=== PATIENT | male | born 1945 | race Caucasian/White ===

== ENCOUNTER 2020-01-05 07:27 | Outpatient (REF) | payer BC, SELFPAY ==
[2020-01-05 10:28] LABS: MANUAL DIFF FLAG NO
[2020-01-05 10:34] LABS: Basophils Absolute Auto 0.1 X10*3/uL (0.0-0.2); Basophils Percent Auto 0.6 % (0-2); Eosinophils Absolute Auto 0.1 X10*3/uL (0.0-0.4); Eosinophils Percent Auto 0.6 % (0-4); Hemoglobin 16.5 g/dl (14.0-18.0); Imm Gran Abs Auto 0.02 X10*3/uL (0.00-0.03); Imm Gran Pct Auto 0.2 % (0.0-0.4); Lymphocytes Absolute Auto 2.8 X10*3/uL (1.2-4.9); Mean Corpuscular Hemoglobin 31.7 pg (27.0-33.0); Mean Platelet Volume 10.2 fL (9.4-12.4); Monocytes Absolute Auto 0.5 X10*3/uL (0.1-1.2); Monocytes Percent Auto 5.5 % (2-11); Neutrophils Percent Auto 60.1 % (45-73); Platelet Count 228 X10*3/uL (160-400); Red Blood Count 5.21 X10*6/uL (4.60-5.80); Red Cell Distribution Width 12.2 % (11.0-16.0); White Blood Count 8.3 X10*3/uL (4.8-10.8)
[2020-01-05 10:42] LABS: Estimated Average Glucose 117 mg/dL; Hemoglobin A1c % 5.7 %
[2020-01-05 11:21] LABS: Alanine Aminotransferase 16 U/L (0-40); Albumin Level 4.4 g/dL (3.5-5.0); Alkaline Phosphatase 88 U/L (39-117); Anion Gap 10 (12-20); Aspartate Amino Transferase 12 U/L (5-37); Bilirubin Total 0.7 mg/dL (0.0-1.0); Blood Urea Nitrogen 19 mg/dL (9-16); Carbon Dioxide 30 mmol/L (22-29); Chloride 105 mmol/L (96-108); Cholesterol 142 mg/dL; Estimated Glomerular Filt Rate 58; Glucose Fasting 115 mg/dL (60-99); HDL Cholesterol 38 mg/dL; LDL Cholesterol Calculated 88 mg/dl; Sodium 140 mmol/L (135-145); Total Protein 6.7 g/dL (6.5-8.0); Triglycerides 84 mg/dL
[2020-01-05 11:42] LABS: T4 Thyroxine 6.7 ug/dL (4.5-12.0); Thyroid Stimulating Hormone 2.35 mIU/mL (0.32-4.0)
[2020-01-05 11:45] LABS: Vitamin B12 801 pg/mL (200-900)
== END 2020-01-05 07:28 | disposition home or self-care (01) ==
LOC: HO.WFDLDS 07:27
PROVIDERS: PCP Internal Medicine; Visit Provider Internal Medicine
DX: E78.00 Pure hypercholesterolemia, unspecified (principal); I10 Essential (primary) hypertension; E66.3 Overweight; R73.01 Impaired fasting glucose
CPT/HCPCS: 36415; 80053; 80061; 82607; 82746; 83036; 84436; 84443; 85025

== ENCOUNTER 2020-12-30 07:04 | Outpatient (REF) | payer MEDICARE, SELFPAY ==
[2020-12-30 10:34] LABS: MANUAL DIFF FLAG NO
[2020-12-30 10:43] LABS: Basophils Percent Auto 0.4 % (0-2); Eosinophils Percent Auto 0.5 % (0-4); Hematocrit 49.6 % (42-52); Hemoglobin 16.7 g/dl (14.0-18.0); Imm Gran Abs Auto 0.02 X10*3/uL (0.00-0.03); Imm Gran Pct Auto 0.3 % (0.0-0.4); Lymphocytes Absolute Auto 2.5 X10*3/uL (1.2-4.9); Lymphocytes Percent Auto 33.3 % (20-40); Mean Corpuscular HGB Conc 33.7 g/dl (31.0-36.0); Mean Corpuscular Hemoglobin 32.1 pg (27.0-33.0); Mean Corpuscular Volume 95.2 fL (80-98); Mean Platelet Volume 10.4 fL (9.4-12.4); Monocytes Absolute Auto 0.5 X10*3/uL (0.1-1.2); Monocytes Percent Auto 7.1 % (2-11); Neutrophils Absolute Auto 4.4 X10*3/uL (2.0-8.3); Neutrophils Percent Auto 58.4 % (45-73); Platelet Count 226 X10*3/uL (160-400); Red Blood Count 5.21 X10*6/uL (4.60-5.80); Red Cell Distribution Width 12.4 % (11.0-16.0); White Blood Count 7.6 X10*3/uL (4.8-10.8)
[2020-12-30 11:04] LABS: Estimated Average Glucose 117 mg/dL; Hemoglobin A1C 163.9735 umol/L; Hemoglobin A1c % 5.7 %
[2020-12-30 11:06] LABS: Alanine Aminotransferase 17 U/L (0-40); Albumin Level 4.4 g/dL (3.5-5.0); Alkaline Phosphatase 83 U/L (39-117); Anion Gap 13 (12-20); Aspartate Amino Transferase 14 U/L (5-37); Bilirubin Total 0.8 mg/dL (0.0-1.0); Blood Urea Nitrogen 16 mg/dL (9-16); Calcium 9.5 mg/dL (8.4-10.2); Carbon Dioxide 28 mmol/L (22-29); Chloride 106 mmol/L (96-108); Cholesterol 150 mg/dL; Estimated Glomerular Filt Rate > 60; Glucose Random 112 mg/dL (60-115); HDL Cholesterol 38 mg/dL; LDL Cholesterol Calculated 95 mg/dl; Potassium 4.7 mmol/L (3.3-5.1); Sodium 142 mmol/L (135-145); Total Protein 6.8 g/dL (6.5-8.0); Triglycerides 85 mg/dL
[2020-12-30 11:26] LABS: Free T4 (Free Thyroxine) 0.87 ng/dL (0.71-1.85); Thyroid Stimulating Hormone 2.99 uIU/mL (0.32-4.0)
[2020-12-30 11:30] LABS: Folate 10.1 ng/mL (> or = 4.0); Vitamin B12 518 pg/mL (200-900)
== END 2020-12-30 07:05 | disposition home or self-care (01) ==
LOC: HO.WFDLDS 07:04
PROVIDERS: Visit Provider Internal Medicine
DX: I10 Essential (primary) hypertension (principal); E78.00 Pure hypercholesterolemia, unspecified; R73.02 Impaired glucose tolerance (oral)
CPT/HCPCS: 36415; 80053; 80061; 82607; 82746; 83036; 84439; 84443; 85025

== ENCOUNTER 2022-01-03 07:20 | Outpatient (REF) | payer MEDICARE, SELFPAY ==
[2022-01-03 11:09] LABS: MANUAL DIFF FLAG NO
[2022-01-03 11:19] LABS: Basophils Percent Auto 0.6 % (0-2); Eosinophils Absolute Auto 0.1 X10*3/uL (0.0-0.4); Eosinophils Percent Auto 0.9 % (0-4); Hematocrit 47.6 % (42.0-52.0); Hemoglobin 15.8 g/dl (14.0-18.0); Imm Gran Abs Auto 0.02 X10*3/uL (0.00-0.03); Imm Gran Pct Auto 0.3 % (0.0-0.4); Lymphocytes Absolute Auto 2.2 X10*3/uL (1.2-4.9); Lymphocytes Percent Auto 31.7 % (20-40); Mean Corpuscular HGB Conc 33.2 g/dl (31.0-36.0); Mean Corpuscular Hemoglobin 31.5 pg (27.0-33.0); Mean Platelet Volume 10.4 fL (9.4-12.4); Monocytes Absolute Auto 0.4 X10*3/uL (0.1-1.2); Monocytes Percent Auto 6.3 % (2-11); Neutrophils Absolute Auto 4.1 x10*3/uL (2.0-8.3); Neutrophils Percent Auto 60.2 % (45-73); Platelet Count 219 X10*3/uL (160-400); Red Blood Count 5.01 X10*6/uL (4.60-5.80); Red Cell Distribution Width 12.6 % (11.0-16.0); White Blood Count 6.8 X10*3/uL (4.8-10.8)
[2022-01-03 11:55] LABS: Free T4 (Free Thyroxine) 0.98 ng/dL (0.71-1.85); Thyroid Stimulating Hormone 2.25 uIU/mL (0.32-4.0)
[2022-01-03 12:14] LABS: Folate 10.7 ng/mL (> or = 4.0); Vitamin B12 535 pg/mL (200-900)
== END 2022-01-03 07:21 | disposition home or self-care (01) ==
LOC: HO.WFDLDS 07:20
PROVIDERS: Visit Provider Internal Medicine
DX: E78.00 Pure hypercholesterolemia, unspecified (principal)
CPT/HCPCS: 36415; 82607; 82746; 84439; 84443; 85025

== ENCOUNTER 2022-07-04 07:58 | Outpatient (REF) | payer MEDICARE, SELFPAY ==
[2022-07-04 11:55] LABS: Estimated Average Glucose 117 mg/dL; Hemoglobin A1c % 5.7 %
[2022-07-04 12:20] LABS: Alanine Aminotransferase 15 U/L (0-40); Albumin Level 4.1 g/dL (3.5-5.0); Alkaline Phosphatase 84 U/L (39-117); Anion Gap 11 (12-20); Aspartate Amino Transferase 16 U/L (5-37); Bilirubin Total 0.9 mg/dL (0.0-1.0); Blood Urea Nitrogen 15 mg/dL (9-16); Calcium 9.4 mg/dL (8.4-10.2); Carbon Dioxide 29 mmol/L (22-29); Chloride 108 mmol/L (96-108); Cholesterol 156 mg/dL; Estimated Glomerular Filt Rate > 60; Glucose Fasting 109 mg/dL (60-99); Glucose Random 109 mg/dL (60-115); HDL Cholesterol 41 mg/dL; LDL Cholesterol Calculated 97 mg/dl; Potassium 4.8 mmol/L (3.3-5.1); Sodium 143 mmol/L (135-145); Total Protein 6.3 g/dL (6.5-8.0); Triglycerides 91 mg/dL
[2022-07-04 12:25] LABS: Prostate Specific Antigen 1.19 ng/mL (<0.05-4.0)
== END 2022-07-04 07:59 | disposition home or self-care (01) ==
LOC: HO.WFDLDS 07:58
PROVIDERS: Visit Provider Nurse Practitioner Family
DX: R73.02 Impaired glucose tolerance (oral) (principal); E78.00 Pure hypercholesterolemia, unspecified; Z12.5 Encounter for screening for malignant neoplasm of prostate
CPT/HCPCS: 36415; 80048; 80053; 80061; 83036; 84153

== ENCOUNTER 2023-01-15 10:52 | Outpatient (AMB) | payer MEDICARE, SELFPAY ==
--- NOTE | 2023-01-15 10:53 | A.OFFVIS_ITS ---
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 Allergies No Known Allergies Allergy (Verified 01/15/23 11:16) Medication List - Last Reconciled 01/15/23 by NEWTON Little ascorbic acid (vitamin C) 1 g PO .every other day cholecalciferol (vitamin D3) 25 mcg PO DAILY lisinopril 5 mg PO DAILY mecobalamin (vitamin B12) 1,000 mcg sublingual DAILY metoprolol succinate ER 50 mg PO DAILY omega-3 fatty acids (Fish Oil Concentrate) 1,000 mg PO DAILY potassium gluconate 595 mg PO DAILY selenium 200 mcg PO DAILY simvastatin 10 mg PO BEDTIME HPI [facility] G0439 HPI Details Patient is a 77-year-old male who presents today for subsequent wellness visit. Patient of Dr. Storm. Today we discussed patient's need for pneumonia vaccine, colon cancer screening, diabetes screening, and tetanus vaccine. Patient did have a negative colonoscopy [address] Escobedo, he has declined a referral for another colonoscopy or a Cologuard. Patient also has declined pneumonia vaccine. [place] of care was reviewed with the patient and he was provided with a screening schedule. End of life planning was discussed with the patient and he was provided with healthcare proxy and MOLST forms. [facility] Medical History Overweight (BMI 25.0-29.9) Hypercholesterolemia Impaired glucose tolerance Hypertension Surgical History History of colonoscopy History of tonsillectomy Rectal polyp Family History Father Hypertension Mother Hypertension Diabetes Sister Hypertension Social History Housing: House Alcohol intake: current Alcohol intake frequency: holidays/special occasions only Alcohol type: beer Patient Tobacco Use Status: Former Tobacco user Tobacco use type: Cigarette e-Cigarette/Vaping Use: Never Used Second Hand Smoke Exposure: No Advance Directives Date on File: 01/05/20 service: Yes Current occupational status: retired Cognitive needs: No Hearing needs: No Vision needs: Yes Questionnaire Medicare Wellness Checkup [age] What gender do you identify with?: male During the past 4 weeks, how much have you been bothered by emotional problems such as feeling anxious, depressed, irritable, sad or downhearted, and blue?: not at all During the past 4 weeks, has your physical & emotional health limited your social activities with family, friends, neighbors, or groups?: not at all During the past 4 weeks, how much bodily pain have you generally had?: no pain During the past 4 weeks, was someone available to help you if you needed & wanted help?: yes, as much as I wanted During the past 4 weeks, what was the hardest physical activity you could do for at least 2 minutes?: moderate Can you get to places out of walking distance without help? (For eg., can you travel alone on buses, taxis or drive your car?): Yes Can you go shopping for groceries or clothes without someone's help?: Yes Can you prepare your own meals?: Yes Can you do your housework without help?: Yes Because of any health problems, do you need the help of another person with your personal care needs such as eating, bathing, dressing or getting around the house?: No Can you handle your own money without help?: Yes During the past 4 weeks, how would you rate your health in general?: excellent During the past 4 weeks how have things been going for you?: pretty well Are you having difficulties driving your car?: no Do you always fasten your seat belt when you are in a car?: yes, usually During past 4 weeks, have you been bothered by the following: never: Falling or dizzy when standing up, Sexual problems?, Trouble eating well?, Teeth or denture problems?, Problems using the telephone? and Tiredness or fatigue? Have you fallen 2 or more times in the past year?: No Are you afraid of falling?: No Are you a smoker?: no During the past 4 weeks, how many drinks of wine, beer, or other alcoholic beverages did you have?: 1 drink or less per week Do you exercise for about 20 minutes 3 or more times a week?: yes, most of the time Have you been given information to help with the following?: yes: Hazards in your house that might hurt you? and yes: Keeping track of your medications? How often do you have trouble taking medicines the way you have been told to take them?: I always take medicine as prescribed How confident are you that you can control & manage most of your health problems?: very confident What is your race?: White Mini Mental State Exam (MMSE) Orientation What is the (year) (season) (date) (day) (month)?: year, season, date, day and month Score Score: 5 Activity of Daily Living Bathing - sponge bath, tub bath or shower: receives no assistance (gets in/out by self, if usual bathing means Dressing - getting clothes from closets & drawers, including inner/outer garments & fasteners.: gets clothes & gets completely dressed without help Toileting - going to the 'toilet room' for urine/bowel elimination & cleaning self/arranging clothes: goes to toilet room, cleans self, arranges clothes without help Transfer: moves in & out of bed and chair without help (may use support object) Continence: controls urination/bowel movements completely by self Feeding: feeds self without help Total Score: 0 Information obtained from: patient Using telephone: independent Traveling: independent Shopping: independent Preparing meals: independent Housework: independent Taking medicine: independent Managing money: independent PHQ-9 Over the last 2 weeks, how often have you been bothered by any of the following problems? 1. Little interest or pleasure in doing things: not at all 2. Feeling down, depressed, or hopeless: not at all 3. Trouble falling or staying asleep, or sleeping too much: not at all 4. Feeling tired or having little energy: not at all 5. Poor appetite or overeating: not at all 6. Feeling bad about yourself - or that you are a failure or have let yourself or your family down: not at all 7. Trouble concentrating on things, such as reading the newspaper or watching television: not at all 8. Moving or speaking so slowly that other people could have noticed. Or the opposite - being so fidgety or restless that you have been moving around a lot more than usual: not at all 9. Thoughts that you would be better off or of hurting yourself in some way: not at all Total score: 0 Depression Screening Interpretation: Negative Depression Screening Done: Yes 24005 - PHQ-9 Billing: Yes Source: Developed by Drs. Alli Romeo, Gloria Schwab, Toi Pichardo and colleagues, with an educational marco from [employer]. Physical Exam Vital Signs: Last Vital Signs Pulse 87 01/15/23 10:54 BP 138/82 01/15/23 10:54 Pulse Ox 98 01/15/23 10:54 Oxygen Delivery Method Room Air 01/15/23 10:54 BMI result Body Mass Index 28.2 Const General: cooperative and no acute distress Orientation/consciousness: patient oriented x3 HEENT Other: Whisper test: pass Neuro Other: Balance: Normal Get up and walk: able to Romberg: negative Tandem gait: unable to General: patient oriented x3 Immunizations tetanus-diphtheria toxoids-Td 2 Lf unit-2 Lf unit/0.5 mL IM suspension Performing Provider: NEWTON Little Performing Location: [facility] Administered by: LUIZ Baum on 01/15/23 11:27 Dose Route Admin Location Dispensed Lot Number Expiration Date 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 0.5 mL IM Left Deltoid 0.5 mL [id number] 08/05/23 [address]-4 [employer] VIS Given Date VIS Provided VIS Publication Date 01/15/23 Single Vaccine 20 Eligibility Eligibility Date Funding Source Not [facility] Eligible 01/15/23 [facility] funds Assessment & Plan Assessment & Plan (1) Adult general medical exam: Code(s): Z00.00 - Encounter for general adult medical examination without abnormal findings (2) Colonoscopy refused: Code(s): Z53.20 - Procedure and treatment not carried out because of patient's decision for unspecified reasons (3) Overweight (BMI 25.0-29.9): Code(s): E66.3 - Overweight Plan: Healthy food choices and exercise as tolerated (4) Hypercholesterolemia: Code(s): E78.00 - Pure hypercholesterolemia, unspecified Plan: Simvastatin 10 mg at bedtime Low-cholesterol diet (5) Impaired glucose tolerance: Code(s): R73.02 - Impaired glucose tolerance (oral) Plan: Fasting BMP has been ordered A1c 5.7 06/2022 (6) Hypertension: Code(s): I10 - Essential (primary) hypertension Qualifiers: Hypertension type: essential hypertension Qualified Code(s): I10 - Essential (primary) hypertension Plan: Lisinopril 5 mg daily Low-sodium diet Orders: Orders Basic Metabolic Panel Fasting Today R73.02 - Impaired glucose tolerance (oral) Td State Immunization Today Z23 - Encounter for immunization Quality Reporting (2019) Depression/Bipolar (159/160/161/177) PHQ-9: Total score: 0 Coding Level of Care Code Medicare Subsequent (G0439) Diagnoses Adult general medical exam Z00.00 Colonoscopy refused Z53.20 Overweight (BMI 25.0-29.9) E66.3 Hypercholesterolemia E78.00 Impaired glucose tolerance R73.02 Essential hypertension I10 Hypertension type: essential hypertension CPT Codes Advance Care Planning - Time spent: 1-15 minutes, not on file ([id number]) Advance Care Planning Date of discussion: 01/15/23 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
[2023-01-15 10:54] VITALS: BP 138/82; PULSE 87; O2SAT 98; BMI 28.2
== END 2023-01-15 11:34 | disposition home or self-care (01) ==
PROVIDERS: PCP Internal Medicine; Visit Provider Nurse Practitioner Family
DX: Z00.00 Encounter for general adult medical examination without abnormal findings (principal); Z53.20 Procedure and treatment not carried out because of patient's decision for unspecified reasons; E66.3 Overweight; E78.00 Pure hypercholesterolemia, unspecified; Z23 Encounter for immunization; R73.02 Impaired glucose tolerance (oral); I10 Essential (primary) hypertension
CPT/HCPCS: 1124F; 90471; 90714; G0439

== ENCOUNTER 2023-05-01 10:49 | Outpatient (AMB) | payer MEDICARE, SELFPAY ==
[2023-05-01 10:51] VITALS: BP 134/86; PULSE 66; O2SAT 96; BMI 28.9
--- NOTE | 2023-05-01 10:51 | MHC.PC.OV ---
Vital Signs 05/01/23 10:51 Height 6 ft 1 in Weight 219 lb BMI 28.9 BP 134/86 Blood Pressure Location Lt brachial Position Sitting Pulse 66 Pulse Source Pulse Oximeter Pulse Oximetry (%) 96 Oxygen Delivery Method Room Air Intake Visit Reasons: 3 month f/u Intake Note: Patient is here to follow up on 3 months Undercoater Required: No Allergies No Known Allergies Allergy (Verified 05/01/23 10:51) Medication List - Last Reconciled 05/01/23 by Preet Storm MD ascorbic acid (vitamin C) 1 g PO .every other day cholecalciferol (vitamin D3) 25 mcg PO DAILY lisinopril 5 mg PO DAILY mecobalamin (vitamin B12) 1,000 mcg sublingual DAILY metoprolol succinate ER 50 mg PO DAILY omega-3 fatty acids (Fish Oil Concentrate) 1,000 mg PO DAILY potassium gluconate 595 mg PO DAILY selenium 200 mcg PO DAILY simvastatin 10 mg PO BEDTIME Tobacco use date assessed: 05/01/23 Fall risk assessment: No Falls in past year Last assessed Fall Risk: 05/01/23 Dental Screening Dental Screen Date: 05/01/23 Did you have a dental visit in the last 12 months?: Yes Did you have a dental problem in the last 6 months where you did not have access to dental care?: No Was dental information given to patient?: Patient has dentist HPI 3 month f/u HPI Details 77-year-old overweight male with hypercholesterolemia impaired glucose tolerance hypertension last seen in June 2022. Patient is here for follow-up. Review of the notes did see the nurse practitioner for annual well visit in December 2022 [facility] Medical History (Updated 05/01/23 @ 11:16 by Preet Storm MD) Screening for prostate cancer Overweight (BMI 25.0-29.9) Hypercholesterolemia Impaired glucose tolerance Hypertension Surgical History History of colonoscopy History of tonsillectomy Rectal polyp Family History Father Hypertension Mother Hypertension Diabetes Sister Hypertension Social History Housing: House Alcohol intake: current Alcohol intake frequency: holidays/special occasions only Alcohol type: beer Patient Tobacco Use Status: Former Tobacco user Tobacco use type: Cigarette e-Cigarette/Vaping Use: Never Used Second Hand Smoke Exposure: No Advance Directives Date on File: 01/05/20 service: Yes Current occupational status: retired Cognitive needs: No Hearing needs: No Vision needs: Yes Questionnaire Thrive Questionnaire Date Thrive assessed: 05/01/23 AUDIT C Alcohol Use Questionnaire (AUDIT-C) 1. How often do you have a drink containing alcohol?: Monthly or less 2. How many drinks containing alcohol do you have on a typical day when you are drinking?: 1 or 2 3. How often do you have six or more drinks on one occasion?: Never Total Score: 1 Score Reviewed/Action Taken: Yes DAKOTA-7 AMB Questionnaire DAKOTA-7 Date DAKOTA - 7 assessed: 05/01/23 Source: Developed by Drs. Alli Romeo, Gloria Schwab, Toi Pichardo and colleagues, with an educational marco from [employer]. Physical exam (Primary Care) Vital Signs: Last Vital Signs Pulse 66 05/01/23 10:51 BP 134/86 05/01/23 10:51 Pulse Ox 96 05/01/23 10:51 Oxygen Delivery Method Room Air 05/01/23 10:51 BMI result Body Mass Index 28.9 Tobacco/Smoking Status: Tobacco use Status Tobacco use date assessed 05/01/23 05/01/23 10:52 Patient Tobacco Use Status Former Tobacco user 05/01/23 10:52 Tobacco use type Cigarette 05/01/23 10:52 e-Cigarette/Vaping Use Never Used 05/01/23 10:52 Thrive Assessment: Date of Thrive Assessment Date Thrive assessed 05/01/23 05/01/23 10:52 Const General: alert; No acute distress Eyes Conjunctivae: conjunctivae normal Resp Auscultation: clear to auscultation bilaterally Cardio Rate: regular rate Rhythm: regular rhythm GI Inspection: Yes normal to inspection Extrem Other: Noted 1+ edema of the right lower extremity, left is negative no redness no pain General: Yes edema Assessment and Plan Assessment & Plan (1) Overweight (BMI 25.0-29.9): Code(s): E66.3 - Overweight Plan: diet and exercise (2) Hypertension: Code(s): I10 - Essential (primary) hypertension Qualifiers: Hypertension type: essential hypertension Qualified Code(s): I10 - Essential (primary) hypertension Plan: Continue with blood pressure medication. Decrease salt intake and exercise patient takes lisinopril 5 mg once a day metoprolol 50 mg once a day (3) Impaired glucose tolerance: Code(s): R73.02 - Impaired glucose tolerance (oral) Plan: Decrease the amount of carbohydrate intake, pasta, bread, rice and potatoes are all sugar and that is aside from all the sweet stuff, remember that fruits are good but they are Sweet also. (4) Hypercholesterolemia: Code(s): E78.00 - Pure hypercholesterolemia, unspecified Plan: Avoid fried foods, chicken skin, eggs, butter margarine, pastries and meat. Be it pork or beef they have a lot of cholesterol LDL goal of less than 130 and triglyceride of less than 150. Patient on simvastatin 10 mg once a day (5) Colonoscopy refused: Code(s): Z53.20 - Procedure and treatment not carried out because of patient's decision for unspecified reasons (6) Peripheral vascular disease: Code(s): I73.9 - Peripheral vascular disease, unspecified Plan: When sitting down elevate the legs, exercise, and support stockings . Discussed with the patient that if the swelling is getting worse or painful to call. Discussed concerns about blood clots Orders: Orders Complete Blood Count Auto Diff Today I10 - Essential (primary) hypertension Free T4 (Free Thyroxine) Today I10 - Essential (primary) hypertension Thyroid Stimulating Hormone Today I10 - Essential (primary) hypertension Lipid Panel Today E78.00 - Pure hypercholesterolemia, unspecified, I10 - Essential (primary) hypertension Hemoglobin A1c Today R73.02 - Impaired glucose tolerance (oral) Comprehensive Met. Panel Today I10 - Essential (primary) hypertension Vitamin B12 and Folate Today I10 - Essential (primary) hypertension Coding Level of Care Code Est Pt Level 4 (58795) Diagnoses Overweight (BMI 25.0-29.9) E66.3 Essential hypertension I10 Hypertension type: essential hypertension Impaired glucose tolerance R73.02 Hypercholesterolemia E78.00 Colonoscopy refused Z53.20 Peripheral vascular disease I73.9
== END 2023-05-01 11:19 | disposition home or self-care (01) ==
PROVIDERS: PCP Internal Medicine; Visit Provider Internal Medicine
DX: I10 Essential (primary) hypertension (principal); I73.9 Peripheral vascular disease, unspecified; E66.3 Overweight; Z68.28 Body mass index [BMI] 28.0-28.9, adult; R73.02 Impaired glucose tolerance (oral); E78.00 Pure hypercholesterolemia, unspecified; Z53.20 Procedure and treatment not carried out because of patient's decision for unspecified reasons
CPT/HCPCS: 99214

== ENCOUNTER 2023-11-13 07:45 | Outpatient (REF) | payer MEDICARE, SELFPAY ==
[2023-11-13 12:09] LABS: MANUAL DIFF FLAG NO
[2023-11-13 12:25] LABS: Estimated Average Glucose 117 mg/dL; Hemoglobin A1c % 5.7 % (<6.0)
[2023-11-13 12:55] LABS: Alanine Aminotransferase 13 U/L (0-40); Albumin Level 4.1 g/dL (3.5-5.0); Alkaline Phosphatase 82 U/L (39-117); Anion Gap 9 (12-20); Aspartate Amino Transferase 15 U/L (5-37); Bilirubin Total 0.8 mg/dL (0.0-1.0); Blood Urea Nitrogen 14 mg/dL (9-16); Carbon Dioxide 28 mmol/L (22-29); Chloride 109 mmol/L (96-108); Cholesterol 136 mg/dL (<200); Estimated Glomerular Filt Rate > 60; Glucose Fasting 105 mg/dL (60-99); Glucose Random 105 mg/dL (60-115); HDL Cholesterol 39 mg/dL (>40); LDL Cholesterol Calculated 79 mg/dL (<100); Potassium 4.5 mmol/L (3.3-5.1); Sodium 141 mmol/L (135-145); Total Protein 6.6 g/dL (6.5-8.0); Triglycerides 90 mg/dL (<150)
[2023-11-13 13:01] LABS: Free T4 (Free Thyroxine) 0.87 ng/dL (0.71-1.85)
[2023-11-13 13:12] LABS: Folate 7.6 ng/mL (> or = 4.0); Thyroid Stimulating Hormone 2.28 uIU/mL (0.32-4.0); Vitamin B12 581 pg/mL (200-900)
[2023-11-13 13:34] LABS: Basophils Absolute Auto 0.1 X10*3/uL (0.0-0.2); Basophils Percent Auto 0.7 % (0-2); Eosinophils Absolute Auto 0.1 X10*3/uL (0.0-0.4); Hematocrit 47.3 % (42.0-52.0); Imm Gran Abs Auto 0.01 X10*3/uL (0.00-0.03); Imm Gran Pct Auto 0.1 % (0.0-0.4); Lymphocytes Absolute Auto 2.2 X10*3/uL (1.2-4.9); Lymphocytes Percent Auto 31.1 % (20-40); Mean Corpuscular HGB Conc 33.8 g/dl (31.0-36.0); Mean Corpuscular Hemoglobin 31.9 pg (27.0-33.0); Mean Corpuscular Volume 94.4 fL (80.0-98.0); Mean Platelet Volume 10.1 fL (9.4-12.4); Monocytes Absolute Auto 0.5 X10*3/uL (0.1-1.2); Monocytes Percent Auto 6.5 % (2-11); Neutrophils Absolute Auto 4.3 x10*3/uL (2.0-8.3); Neutrophils Percent Auto 60.6 % (45-73); Platelet Count 221 X10*3/uL (160-400); Red Blood Count 5.01 X10*6/uL (4.60-5.80); Red Cell Distribution Width 12.7 % (11.0-16.0); White Blood Count 7.1 X10*3/uL (4.8-10.8)
== END 2023-11-13 07:46 | disposition home or self-care (01) ==
LOC: HO.WFDLDS 07:45
PROVIDERS: Nurse Practitioner Family; Visit Provider Internal Medicine
DX: R73.02 Impaired glucose tolerance (oral) (principal); I10 Essential (primary) hypertension; E78.00 Pure hypercholesterolemia, unspecified
CPT/HCPCS: 36415; 80048; 80053; 80061; 82607; 82746; 83036; 84439; 84443; 85025

== ENCOUNTER 2023-12-12 13:25 | Outpatient (AMB) | payer MEDICARE, SELFPAY ==
[2023-12-12 13:27] VITALS: BP 138/88; PULSE 78; O2SAT 95; BMI 28.1
--- NOTE | 2023-12-12 13:27 | MHC.PC.OV ---
Vital Signs 12/12/23 13:27 Height 6 ft 1 in Weight 213 lb BMI 28.1 BP 138/88 Blood Pressure Location Lt brachial Position Sitting Pulse 78 Pulse Source Pulse Oximeter Pulse Oximetry (%) 95 Oxygen Delivery Method Room Air Intake Visit Reasons: follow up labs Diabetes Clinical Manager Required: No Accompanied by: Self / Same As Patient Allergies No Known Allergies Allergy (Verified 12/12/23 13:27) Tobacco use date assessed: 05/01/23 Fall risk assessment: No Falls in past year Last assessed Fall Risk: 12/12/23 Dental Screening Dental Screen Date: 05/01/23 HPI follow up labs HPI Details 77-year-old overweight male with hypercholesterolemia impaired glucose tolerance hypertension last seen by Dr. Storm coming in for review of labs. Patient states he is feeling generally well and has no acute concerns today. [facility] Medical History (Updated 05/01/23 @ 11:16 by Preet Storm MD) Screening for prostate cancer Overweight (BMI 25.0-29.9) Hypercholesterolemia Impaired glucose tolerance Hypertension Surgical History History of colonoscopy History of tonsillectomy Rectal polyp Family History Father Hypertension Mother Hypertension Diabetes Sister Hypertension Social History Housing: House Alcohol intake: current Alcohol intake frequency: holidays/special occasions only Alcohol type: beer Patient Tobacco Use Status: Former Tobacco user Tobacco use type: Cigarette e-Cigarette/Vaping Use: Never Used Second Hand Smoke Exposure: No Advance Directives Date on File: 01/05/20 service: Yes Current occupational status: retired Cognitive needs: No Hearing needs: No Vision needs: Yes Questionnaire PHQ-9 Over the last 2 weeks, how often have you been bothered by any of the following problems? 1. Little interest or pleasure in doing things: not at all 2. Feeling down, depressed, or hopeless: not at all 3. Trouble falling or staying asleep, or sleeping too much: not at all 4. Feeling tired or having little energy: not at all 5. Poor appetite or overeating: not at all 6. Feeling bad about yourself - or that you are a failure or have let yourself or your family down: not at all 7. Trouble concentrating on things, such as reading the newspaper or watching television: not at all 8. Moving or speaking so slowly that other people could have noticed. Or the opposite - being so fidgety or restless that you have been moving around a lot more than usual: not at all 9. Thoughts that you would be better off or of hurting yourself in some way: not at all Total score: 0 Depression Screening Interpretation: Negative Depression Screening Done: Yes 63000 - PHQ-9 Billing: Yes Source: Developed by Drs. Alli Romeo, Toi Proctor and colleagues, with an educational marco from [employer]. Thrive Questionnaire Date Thrive assessed: 05/01/23 AUDIT C Alcohol Use Questionnaire (AUDIT-C) 1. How often do you have a drink containing alcohol?: Monthly or less 2. How many drinks containing alcohol do you have on a typical day when you are drinking?: 1 or 2 3. How often do you have six or more drinks on one occasion?: Never Total Score: 1 Score Reviewed/Action Taken: Yes DAKOTA-7 AMB Questionnaire DAKOTA-7 Date DAKOTA - 7 assessed: 05/01/23 Source: Developed by Drs. Alli Romeo, Gloria Schwab, Toi Pichardo and colleagues, with an educational marco from [employer]. Review of Systems Const Denies body aches and Denies fever(s) Eyes Reports no additional complaints ENT Denies dizziness Card Denies chest pain and Denies dyspnea Resp Denies dyspnea GI Denies abdominal pain, Denies diarrhea, Denies nausea and Denies vomiting Reports no additional complaints Musc Reports no additional complaints and Denies abnormal gait Skin/Breast Reports system reviewed and no additional complaints, except as documented Neuro Denies abnormal gait and Denies dizziness Psych Reports no additional complaints Physical exam (Primary Care) Vital Signs: Last Vital Signs Pulse 78 12/12/23 13:27 BP 138/88 12/12/23 13:27 Pulse Ox 95 12/12/23 13:27 Oxygen Delivery Method Room Air 12/12/23 13:27 BMI result Body Mass Index 28.1 Tobacco/Smoking Status: Tobacco use Status Tobacco use date assessed 05/01/23 12/12/23 13:31 Patient Tobacco Use Status Former Tobacco user 12/12/23 13:31 Tobacco use type Cigarette 12/12/23 13:31 e-Cigarette/Vaping Use Never Used 12/12/23 13:31 PHQ-9: PHQ-9 Score PHQ-9: Total score 0 12/12/23 13:36 Depression Screening Interpretation: Negative Thrive Assessment: Date of Thrive Assessment Date Thrive assessed 05/01/23 12/12/23 13:31 Const General: cooperative, healthy appearing, comfortable and no acute distress Orientation/consciousness: patient oriented x3 HENMT Head: Yes normocephalic Ears: hearing grossly normal bilaterally General nose exam: Normal external nose present Eyes General: appearance normal, both eyes and all related structures Conjunctivae: conjunctivae normal Neck Neck: Yes full ROM and Yes no lymphadenopathy Resp Effort & Inspection: normal respiratory effort Cardio Rate: regular rate Rhythm: regular rhythm Skin General skin exam: no rashes or lesions noted Neuro General: patient oriented x3 Gait exam (Neuro): Normal gait present Extrem General: Yes normal to inspection, Yes full ROM and No edema Psych Affect: normal affect Attitude: cooperative Insight: Good insight present (Psych) Judgement: Good judgement present (Psych) Assessment and Plan Assessment & Plan (1) Hypertension: Code(s): I10 - Essential (primary) hypertension Qualifiers: Hypertension type: essential hypertension Qualified Code(s): I10 - Essential (primary) hypertension Plan: Blood pressure at goal today. Continue on metoprolol and lisinopril. Avoid salt intake and encourage healthy diet and regular exercise. (2) Impaired glucose tolerance: Code(s): R73.02 - Impaired glucose tolerance (oral) Plan: A1c 5.7% on last blood work. Decrease the amount of carbohydrates such as pasta, bread, rice, and potatoes and limit the amount of sweets. Although fruits are generally healthy they should be eaten in moderation as they are still high in sugar. Hemoglobin A1c goal of less than 7%. (3) Hypercholesterolemia: Code(s): E78.00 - Pure hypercholesterolemia, unspecified Plan: Avoid foods that are high in cholesterol such as red meat, fried foods, eggs and baked goods. Triglyceride goal of less than 150 and LDL goal of less than 100. Continue on simvastatin. Cholesterol at goal on last blood work we will repeat in 6 months. (4) Overweight (BMI 25.0-29.9): Code(s): E66.3 - Overweight Plan: Healthy diet and regular exercise is encouraged. Noted 6 lb weight loss since last visit. Plan This note was constructed using voice recognition software. While every effort has been made to ensure accuracy and donor relations associate, still areas may have been included sometimes these areas may affect the content or meeting of the given symptoms. Total time spent caring for the patient today was 30 minutes. This includes time spent before the visit reviewing the chart, time spent during the visit, and time spent after the visit and documentation. Orders: Orders Lipid Panel 6 Months Z00.00 - Encounter for general adult medical examination without abnormal findings Prostate Specific Antigen Scr 6 Months Z00.00 - Encounter for general adult medical examination without abnormal findings Vitamin B12 and Folate 6 Months Z00.00 - Encounter for general adult medical examination without abnormal findings Vitamin D 25-OH (D2 and D3) 6 Months Z00.00 - Encounter for general adult medical examination without abnormal findings Complete Blood Count Auto Diff 6 Months Z00.00 - Encounter for general adult medical examination without abnormal findings Comprehensive Met. Panel 6 Months Z00.00 - Encounter for general adult medical examination without abnormal findings Free T4 (Free Thyroxine) 6 Months Z00.00 - Encounter for general adult medical examination without abnormal findings TSH reflex Free T4 6 Months Z00.00 - Encounter for general adult medical examination without abnormal findings Coding Level of Care Code Est Pt Level 3 (23115) Diagnoses Essential hypertension I10 Hypertension type: essential hypertension Impaired glucose tolerance R73.02 Hypercholesterolemia E78.00 Overweight (BMI 25.0-29.9) E66.3
== END 2023-12-12 13:56 | disposition home or self-care (01) ==
PROVIDERS: PCP Internal Medicine
DX: I10 Essential (primary) hypertension (principal); R73.02 Impaired glucose tolerance (oral); E78.00 Pure hypercholesterolemia, unspecified; E66.3 Overweight
CPT/HCPCS: 99213

== ENCOUNTER 2024-06-10 14:16 | Outpatient (AMB) | payer MEDICARE, SELFPAY ==
[2024-06-10 14:29] VITALS: BP 126/82; PULSE 75; O2SAT 97; BMI 28.3
--- NOTE | 2024-06-10 14:29 | MHC.PC.OV ---
Vital Signs 06/10/24 14:29 Height 6 ft 1 in Weight 214 lb 8 oz BMI 28.3 BP 126/82 Blood Pressure Location Lt brachial Position Sitting Pulse 75 Pulse Source Pulse Oximeter Pulse Oximetry (%) 97 Oxygen Delivery Method Room Air Intake Visit Reasons: f/u HTN, HLD Aircraft Machinist Required: No Accompanied by: Self / Same As Patient Allergies No Known Allergies Allergy (Verified 06/10/24 14:30) Medication List - Last Reconciled 06/10/24 by Amalia Calle PA-C ascorbic acid (vitamin C) 1 g PO .every other day cholecalciferol (vitamin D3) 25 mcg PO DAILY lisinopril 5 mg PO DAILY mecobalamin (vitamin B12) 1,000 mcg sublingual DAILY metoprolol succinate ER 50 mg PO DAILY omega-3 fatty acids (Fish Oil Concentrate) 1,000 mg PO DAILY potassium gluconate 595 mg PO DAILY selenium 200 mcg PO DAILY simvastatin 10 mg PO BEDTIME Tobacco use date assessed: 06/10/24 Fall risk assessment: No Falls in past year Last assessed Fall Risk: 06/10/24 Dental Screening Dental Screen Date: 06/10/24 Did you have a dental visit in the last 12 months?: No Did you have a dental problem in the last 6 months where you did not have access to dental care?: No Was dental information given to patient?: No HPI f/u HTN, HLD HPI Details 77-year-old overweight male with hypercholesterolemia, impaired glucose tolerance, hypertension last seen 12/2023 coming in for follow up today. Presenting with concerns regarding the management of his 's (Iveth's) severe neck pain. He has been particularly stressed due to his 's overall health and has been having anxiety surrounding the situation manifesting as lack of sleep and anger. He has no acute concerns for himself today. [facility] Medical History Screening for prostate cancer Overweight (BMI 25.0-29.9) Hypercholesterolemia Impaired glucose tolerance Hypertension Surgical History History of colonoscopy History of tonsillectomy Rectal polyp Family History Father Hypertension Mother Hypertension Diabetes Sister Hypertension Social History Housing: House Alcohol intake: current Alcohol intake frequency: holidays/special occasions only Alcohol type: beer Patient Tobacco Use Status: Former Tobacco user Tobacco use type: Cigarette e-Cigarette/Vaping Use: Never Used Second Hand Smoke Exposure: No Advance Directives Date on File: 01/05/20 service: Yes Current occupational status: retired Current occupational exposures/hazards: No Cognitive needs: No Hearing needs: No Vision needs: Yes Questionnaire PHQ-9 Over the last 2 weeks, how often have you been bothered by any of the following problems? 1. Little interest or pleasure in doing things: not at all 2. Feeling down, depressed, or hopeless: not at all 3. Trouble falling or staying asleep, or sleeping too much: not at all 4. Feeling tired or having little energy: not at all 5. Poor appetite or overeating: not at all 6. Feeling bad about yourself - or that you are a failure or have let yourself or your family down: not at all 7. Trouble concentrating on things, such as reading the newspaper or watching television: not at all 8. Moving or speaking so slowly that other people could have noticed. Or the opposite - being so fidgety or restless that you have been moving around a lot more than usual: not at all 9. Thoughts that you would be better off or of hurting yourself in some way: not at all Total score: 0 Depression Screening Interpretation: Negative Depression Screening Done: Yes 67505 - PHQ-9 Billing: Yes Source: Developed by Drs. Alli Romeo, Gloria Schwab, Toi Pichardo and colleagues, with an educational marco from [employer]. Thrive Questionnaire Date Thrive assessed: 06/10/24 I am a: Patient What is your living situation today?: I have a steady place to live Within the past 12 months, did the food you bought not last and you didn't have the money to get more?: Never true Within the past 12 months, did you worry whether your food would run out before you got money to buy more?: Never true Do you have trouble paying for medicines?: No Do you have trouble getting transportation to medical appointments?: No Do you have trouble paying your heating and electricity bill?: No Do you have trouble taking care of your child, family member or friend?: No Do you have trouble with day-to-day activities such as bathing, preparing meals, shopping, managing finances, etc.?: No Are you currently unemployed and looking for a job?: No Are you interested in more education?: No Please select the resources that you would like help with: None Currently or been in a relationship where the following occur: No concerns reported THRIVE Score: 0 AUDIT C Alcohol Use Questionnaire (AUDIT-C) 1. How often do you have a drink containing alcohol?: Monthly or less 2. How many drinks containing alcohol do you have on a typical day when you are drinking?: 1 or 2 3. How often do you have six or more drinks on one occasion?: Never Total Score: 1 Score Reviewed/Action Taken: Yes DAKOTA-7 AMB Questionnaire DAKOTA-7 Date DAKOTA - 7 assessed: 06/10/24 Feeling nervous, anxious, or on edge: 0 = Not at all Not being able to stop or control worryin = Not at all Worrying too much about different things: 0 = Not at all Trouble relaxin = Not at all Being so restless that it is hard to sit still: 0 = Not at all Becoming easily annoyed or irritable: 0 = Not at all Feeling afraid as if something awful might happen: 0 = Not at all Total DAKOTA-7 score (0-4 normal; 5-9 mild; 10-14 moderate; 15-21 severe): 0 Source: Developed by Drs. Alli Romeo, Gloria Schwab, Toi Pichardo and colleagues, with an educational marco from [employer]. Review of Systems Const Denies body aches, Denies chills, Denies fever(s), Denies headache(s) and Denies poor appetite Eyes Reports no additional complaints ENT Denies dysphagia, Denies dizziness, Denies headache(s) and Denies odynophagia Card Denies chest pain, Denies syncope, Denies edema, Denies irregular heart rhythm, Denies lightheadedness and Denies dyspnea Resp Denies cough and Denies dyspnea GI Denies abdominal pain, Denies constipation, Denies dysphagia, Denies diarrhea, Denies nausea, Denies odynophagia and Denies vomiting Reports no additional complaints Musc Reports no additional complaints and Denies abnormal gait Skin/Breast Reports system reviewed and no additional complaints, except as documented Neuro Denies abnormal gait, Denies dizziness, Denies syncope and Denies headache(s) Psych Reports no additional complaints Physical exam (Primary Care) Vital Signs: Last Vital Signs Pulse 75 06/10/24 14:29 BP 126/82 06/10/24 14:29 Pulse Ox 97 06/10/24 14:29 Oxygen Delivery Method Room Air 06/10/24 14:29 BMI result Body Mass Index 28.3 Tobacco/Smoking Status: Tobacco use Status Tobacco use date assessed 06/10/24 06/10/24 14:30 Patient Tobacco Use Status Former Tobacco user 06/10/24 14:30 Tobacco use type Cigarette 06/10/24 14:30 e-Cigarette/Vaping Use Never Used 06/10/24 14:30 PHQ-9: PHQ-9 Score PHQ-9: Total score 0 06/10/24 14:36 Depression Screening Interpretation: Negative Thrive Assessment: Date of Thrive Assessment Date Thrive assessed 06/10/24 06/10/24 14:36 Currently or been in a relationship where the following occur: No concerns reported Const General: cooperative, healthy appearing, comfortable and no acute distress Orientation/consciousness: patient oriented x3 HENMT Head: Yes normocephalic Ears: hearing grossly normal bilaterally General nose exam: Normal external nose present Eyes General: appearance normal, both eyes and all related structures Conjunctivae: conjunctivae normal Neck Neck: Yes full ROM and Yes no lymphadenopathy Resp Effort & Inspection: normal respiratory effort Auscultation: clear to auscultation bilaterally, no crackles, no rales, no rhonchi and no wheezes Cardio Rate: regular rate Rhythm: regular rhythm Skin General skin exam: no rashes or lesions noted Neuro General: patient oriented x3 Gait exam (Neuro): Normal gait present Extrem General: Yes normal to inspection, Yes full ROM and No edema Psych Affect: normal affect Attitude: cooperative Insight: Good insight present (Psych) Judgement: Good judgement present (Psych) Coding Level of Care Code Est Pt Level 3 (06464) Diagnoses Overweight (BMI 25.0-29.9) E66.3 Hypercholesterolemia E78.00 Impaired glucose tolerance R73.02 Essential hypertension I10 Hypertension type: essential hypertension Additional Codes PHQ-9 - 26076 - PHQ-9 Billing: Yes ([id number]) Assessment & Plan Assessment & Plan (1) Overweight (BMI 25.0-29.9): Code(s): E66.3 - Overweight Category: Medical Plan: Healthy diet and regular exercise is encouraged. (2) Hypercholesterolemia: Code(s): E78.00 - Pure hypercholesterolemia, unspecified Category: Medical Plan: Avoid foods that are high in cholesterol such as red meat, fried foods, eggs and baked goods. Triglyceride goal of less than 150 and LDL goal of less than 130. Continue on simvastatin. Reminded patient about blood work. (3) Impaired glucose tolerance: Code(s): R73.02 - Impaired glucose tolerance (oral) Category: Medical Plan: Decrease the amount of carbohydrates such as pasta, bread, rice, and potatoes and limit the amount of sweets. Although fruits are generally healthy they should be eaten in moderation as they are still high in sugar. (4) Hypertension: Code(s): I10 - Essential (primary) hypertension Category: Medical Qualifiers: Hypertension type: essential hypertension Qualified Code(s): I10 - Essential (primary) hypertension Plan: Continue on current blood pressure medication. Avoid salt intake and encourage healthy diet and regular exercise. Plan I discussed with the patient about his overall wellbeing today and he declines the need for counseling services or additional medication at this time. This note was constructed using voice recognition software. While every effort has been made to ensure accuracy and electric mule driver, still areas may have been included sometimes these areas may affect the content or meeting of the given symptoms. Total time spent caring for the patient today was 20 minutes. This includes time spent before the visit reviewing the chart, time spent during the visit, and time spent after the visit and documentation. Patient was informed and verbally consented to the use of an ambient scribe for clinic note documentation during this visit. Orders: Orders Hemoglobin A1c Today R73.02 - Impaired glucose tolerance (oral)
--- OUTSIDE RECORDS SUMMARY | 2024-06-10 16:49 | XMS_ITS | Continuity of Care Document ---
Author Name [facility] Organization [facility] Care Team Providers Care Pegger Dobby Looms Name Role Phone [facility] Unavailable Unavailable Problems Combined list of problems from Department of Defense and Veterans Affairs facilities. It does not include entries that were removed or entered in error. Problem Status Onset Date Problem Type Date of Resolution Comments Source Benign essential hypertension Active Condition Nov 24, 2012 Entered By: CIERA DANG Comment: EKG, JULY 2012 outside [place]; [place] per ptAug 2012 Entered By: CIERA DANG Comment: repeat EKG SEPTEMBER 12 at [facility] Colonoscopy normal Active Condition A ug 2012 Entered By: CIERA DANG Comment: Surveil/Maint ence Colonoscopy 2010: Neg CRC, repeat 2019 [facility] Consent status for immunizations Active Condition Nov 24, 2012 Entered By: CIERA DANG Comment: Had Herpes Zoxter Inj; declines Pneumovax Inj. [facility] Environmental allergy Active Condition Nov 24, 2012 Entered By: CIERA DANG Comment: Ragweed, Pollen; No Allergies to Medicine [facility] History of tonsillectomy Active Condition Nov 24, 2012 Entered By: CIERA DANG Comment: Childhood [facility] Hypercholesterolemia Active Condition [place] v70 Active Condition Oct 28 14 Entered By: CIERA DANG Comment: had Zoster and Tdap Done in 2012 (approx yr) outside [facility] Medications Combined list of outpatient medications from [...] Reaction Lot Number CVX Code Drug Manager Business Status Comments Source COVID-19 (MODERNA), MRNA, LNP-S, PF, 100 MCG/0.5 ML DOSE 2 2020 207 complet ed MOD; [id number]; 1 [place] [facility] COVID-19 (MODERNA), MRNA, LNP-S, PF, 100 MCG/0.5 ML DOSE 1 2020 207 complet ed MOD; [id number]; 1 [place] [facility] TD(ADULT) UNSPECIFIED [...] 11/24/2012 Pt. stated he quit in 1973. [facility]
== END 2024-06-10 15:03 | disposition home or self-care (01) ==
LOC: HO.HMCH 14:16
PROVIDERS: PCP Internal Medicine
DX: E66.3 Overweight (principal); E78.00 Pure hypercholesterolemia, unspecified; R73.02 Impaired glucose tolerance (oral); I10 Essential (primary) hypertension

== ENCOUNTER → 2024-06-10 14:16 | Outpatient (BNVA) | payer MEDICARE, SELFPAY | PROVIDERS: PCP Internal Medicine | DX: E66.3 Overweight (principal); E78.00 Pure hypercholesterolemia, unspecified; R73.02 Impaired glucose tolerance (oral); I10 Essential (primary) hypertension | CPT/HCPCS: 96127; 99212 ==

== ENCOUNTER 2024-06-22 07:34 | Outpatient (REF) | payer MEDICARE, SELFPAY ==
[2024-06-22 11:24] LABS: MANUAL DIFF FLAG NO
[2024-06-22 11:58] LABS: Basophils Percent Auto 0.6 % (0-2); Eosinophils Percent Auto 0.4 % (0-4); Hematocrit 47.6 % (42.0-52.0); Hemoglobin 16.1 g/dl (14.0-18.0); Imm Gran Abs Auto 0.02 X10*3/uL (0.00-0.03); Imm Gran Pct Auto 0.3 % (0.0-0.4); Lymphocytes Absolute Auto 1.8 X10*3/uL (1.2-4.9); Lymphocytes Percent Auto 26.5 % (20-40); Mean Corpuscular HGB Conc 33.8 g/dl (31.0-36.0); Mean Corpuscular Hemoglobin 32.3 pg (27.0-33.0); Mean Corpuscular Volume 95.6 fL (80.0-98.0); Mean Platelet Volume 9.9 fL (9.4-12.4); Monocytes Absolute Auto 0.4 X10*3/uL (0.1-1.2); Neutrophils Absolute Auto 4.5 x10*3/uL (2.0-8.3); Neutrophils Percent Auto 66.2 % (45-73); Platelet Count 226 X10*3/uL (160-400); Red Blood Count 4.98 X10*6/uL (4.60-5.80); Red Cell Distribution Width 12.6 % (11.0-16.0); White Blood Count 6.9 X10*3/uL (4.8-10.8)
[2024-06-22 12:16] LABS: Alanine Aminotransferase 19 U/L (0-40); Albumin Level 4.1 g/dL (3.5-5.0); Alkaline Phosphatase 78 U/L (39-117); Anion Gap 9 (12-20); Aspartate Amino Transferase 22 U/L (5-37); Bilirubin Total 0.7 mg/dL (0.0-1.0); Blood Urea Nitrogen 17 mg/dL (9-16); Calcium 9.1 mg/dL (8.4-10.2); Carbon Dioxide 28 mmol/L (22-29); Chloride 109 mmol/L (96-108); Cholesterol 137 mg/dL (<200); Estimated Average Glucose 117 mg/dL; Estimated Glomerular Filt Rate > 60; Glucose Random 116 mg/dL (60-115); HDL Cholesterol 43 mg/dL (>40); Hemoglobin A1c % 5.7 % (<6.0); LDL Cholesterol Calculated 79 mg/dL (<100); Potassium 4.4 mmol/L (3.3-5.1); Sodium 142 mmol/L (135-145); Total Protein 6.6 g/dL (6.5-8.0); Triglycerides 77 mg/dL (<150)
[2024-06-22 12:38] LABS: Free T4 (Free Thyroxine) 0.89 ng/dL (0.71-1.85); TSH reflex Free T4 2.45 uIU/mL (0.32-4.0)
[2024-06-22 12:44] LABS: Folate 7.7 ng/mL (> or = 4.0); Vitamin B12 511 pg/mL (200-900)
[2024-06-26 16:03] LABS: Vitamin D 25-OH, D2 <4 ng/mL; Vitamin D 25-OH, D3 27 ng/mL; Vitamin D 25-OH, Total 27 ng/mL (30-100)
== END 2024-06-22 07:35 | disposition home or self-care (01) ==
LOC: HO.WFDLDS 07:34
DX: Z00.00 Encounter for general adult medical examination without abnormal findings (principal); R73.02 Impaired glucose tolerance (oral); Z12.5 Encounter for screening for malignant neoplasm of prostate; Z13.6 Encounter for screening for cardiovascular disorders
CPT/HCPCS: 36415; 80053; 80061; 82306; 82607; 82746; 83036; 84153; 84439; 84443; 85025

== ENCOUNTER 2024-06-23 13:43 | Outpatient (AMB) | payer MEDICARE, SELFPAY ==
--- NOTE | 2024-06-23 13:53 | A.OFFPC_ITS ---
Vital Signs 06/23/24 13:54 Height 6 ft 1 in Weight 213 lb BMI 28.1 BP 120/66 Blood Pressure Location Lt brachial Position Sitting Temp 97.1 F Temp Source Temporal Artery Scan Intake Visit Reasons: follow up Operating Systems Programmer Required: No Assistant Branch Operations Manager: Not Required per policy Accompanied by: Self / Same As Patient Allergies No Known Allergies Allergy (Verified 06/23/24 14:02) Medication List - Last Reconciled 06/23/24 by Amalia Calle PA-C ascorbic acid (vitamin C) 1 g PO .every other day cholecalciferol (vitamin D3) 25 mcg PO DAILY lisinopril 5 mg PO DAILY mecobalamin (vitamin B12) 1,000 mcg sublingual DAILY metoprolol succinate ER 50 mg PO DAILY omega-3 fatty acids (Fish Oil Concentrate) 1,000 mg PO DAILY potassium gluconate 595 mg PO DAILY selenium 200 mcg PO DAILY simvastatin 10 mg PO BEDTIME Tobacco use date assessed: 06/23/24 Fall risk assessment: No Falls in past year Last assessed Fall Risk: 06/23/24 Dental Screening Dental Screen Date: 06/10/24 HPI follow up HPI Details 79-year-old overweight male with hyperch olesterolemia, impaired glucose tolerance, hypertension last seen 05/2024 coming in for follow up. The patient is a 79-year-old male presenting with a follow-up visit for ongoing medical management. Recent blood work shows good control over hypertension, prediabetes, and hyperlipidemia. Lifestyle adherence involves dietary sodium, chocolate, and red meat restrictions. He also reports a significant impact on his mental well-being due to his 's health predicament, with details involving her complexities in managing cancer. [facility] Medical History Screening for prostate cancer Overweight (BMI 25.0-29.9) Hypercholesterolemia Impaired glucose tolerance Hypertension Surgical History History of colonoscopy History of tonsillectomy Rectal polyp Family History Father Hypertension Mother Hypertension Diabetes Sister Hypertension Social History Housing: House Alcohol intake: current Alcohol intake frequency: holidays/special occasions only Alcohol type: beer Patient Tobacco Use Status: Former Tobacco user Tobacco use type: Cigarette e-Cigarette/Vaping Use: Never Used Second Hand Smoke Exposure: Yes Advance Directives Date on File: 01/05/20 service: Yes Current occupational status: retired Current occupational exposures/hazards: No Cognitive needs: No Hearing needs: No Vision needs: Yes Questionnaire Thrive Questionnaire Date Thrive assessed: 06/10/24 DAKOTA-7 AMB Questionnaire DAKOTA-7 Date DAKOTA - 7 assessed: 06/10/24 Source: Developed by Drs. Alli Romeo, Gloria Schwab, Toi Pichardo and colleagues, with an educational marco from [employer]. Review of Systems Const Denies body aches, Denies chills, Denies fever(s), Denies headache(s) and Denies poor appetite Eyes Reports no additional complaints ENT Denies dysphagia, Denies dizziness, Denies headache(s) and Denies odynophagia Card Denies chest pain, Denies syncope, Denies edema, Denies irregular heart rhythm, Denies lightheadedness and Denies dyspnea Resp Denies cough and Denies dyspnea GI Denies abdominal pain, Denies constipation, Denies dysphagia, Denies diarrhea, Denies nausea, Denies odynophagia and Denies vomiting Reports no additional complaints Musc Reports no additional complaints and Denies abnormal gait Skin/Breast Reports system reviewed and no additional complaints, except as documented Neuro Denies abnormal gait, Denies dizziness, Denies syncope and Denies headache(s) Psych Reports no additional complaints Physical exam (Primary Care) Vital Signs: Last Vital Signs Temp 97.1 F 06/23/24 13:54 Oxygen Delivery Method Room Air 06/23/24 13:54 BMI result Body Mass Index 28.1 Tobacco/Smoking Status: Tobacco use Status Tobacco use date assessed 06/10/24 06/19/24 10:20 Patient Tobacco Use Status Former Tobacco user 06/19/24 10:20 Tobacco use type Cigarette 06/19/24 10:20 e-Cigarette/Vaping Use Never Used 06/19/24 10:20 Thrive Assessment: Date of Thrive Assessment Date Thrive assessed 06/10/24 06/19/24 10:20 Const General: cooperative, healthy appearing, comfortable and no acute distress Orientation/consciousness: patient oriented x3 HENMT Head: Yes normocephalic Ears: hearing grossly normal bilaterally General nose exam: Normal external nose present Eyes General: appearance normal, both eyes and all related structures Conjunctivae: conjunctivae normal Neck Neck: Yes full ROM and Yes no lymphadenopathy Resp Effort & Inspection: normal respiratory effort Auscultation: clear to auscultation bilaterally, no crackles, no rales, no rhonchi and no wheezes Cardio Rate: regular rate Rhythm: regular rhythm Skin General skin exam: no rashes or lesions noted Neuro General: patient oriented x3 Gait exam (Neuro): Normal gait present Extrem General: Yes normal to inspection, Yes full ROM and No edema Psych Affect: normal affect Attitude: cooperative Insight: Good insight present (Psych) Judgement: Good judgement present (Psych) Coding Level of Care Code Est Pt Level 3 (51304) Diagnoses Overweight (BMI 25.0-29.9) E66.3 Hypercholesterolemia E78.00 Impaired glucose tolerance R73.02 Essential hypertension I10 Hypertension type: essential hypertension Assessment & Plan Assessment & Plan (1) Overweight (BMI 25.0-29.9): Code(s): E66.3 - Overweight Category: Medical Plan: Healthy diet and regular exercise is encouraged. (2) Hypercholesterolemia: Code(s): E78.00 - Pure hypercholesterolemia, unspecified Category: Medical Plan: Avoid foods that are high in cholesterol such as red meat, fried foods, eggs and baked goods. Triglyceride goal of less than 150 and LDL goal of less than 130. Continue on simvastatin 10. Last blood work within normal limits (3) Impaired glucose tolerance: Code(s): R73.02 - Impaired glucose tolerance (oral) Category: Medical Plan: Decrease the amount of carbohydrates such as pasta, bread, rice, and potatoes and limit the amount of sweets. Although fruits are generally healthy they shou ld be eaten in moderation as they are still high in sugar. Last A1c 5.2% (4) Hypertension: Code(s): I10 - Essential (primary) hypertension Category: Medical Qualifiers: Hypertension type: essential hypertension Qualified Code(s): I10 - Essential (primary) hypertension Plan: Continue on current blood pressure medication. Avoid salt intake and encourage healthy diet and regular exercise. Plan Current management for hypertension, prediabetes, and hyperlipidemia is deemed appropriate, reflecting on effective BP and lipid control but acknowledging mild dehydration, necessitating ongoing hydration awareness. Prescription alignments, particularly lisinopril and metoprolol, were confirmed with the pharmacy. Continuous emphasis on maintaining dietary limitations supports cardiovascular health. Emotional stressors due to his ?s health issues were explored, offering empathetic dialogue and support. Ongoing blood work prior to subsequent visits remains a pivotal aspect of long-term disease management. This note was constructed using voice recognition software. While every effort has been made to ensure accuracy and drafter detail, still areas may have been included sometimes these areas may affect the content or meeting of the given symptoms. Total time spent caring for the patient today was 20 minutes. This includes time spent before the visit reviewing the chart, time spent during the visit, and time spent after the visit and documentation. Patient was informed and verbally consented to the use of an ambient scribe for clinic note documentation during this visit. Orders: Orders 2 Comprehensive Met. Panel 6 Months I10 - Essential (primary) hypertension Lipid Panel 6 Months E78.00 - Pure hypercholesterolemia, unspecified Medications: Refilled lisinopril 5 mg PO DAILY 90 tabs 3RF simvastatin 10 mg PO BEDTIME 90 tabs 3RF
[2024-06-23 13:54] VITALS: BP 120/66; TEMP 36.2; BMI 28.1
--- OUTSIDE RECORDS SUMMARY | 2024-06-23 17:00 | XMS_ITS | Continuity of Care Document ---
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 It does not include entries that were removed or entered in error. Problem Status Onset Date Problem Type Date of Resolution Comments Source Benign essential hypertension Active Condition Nov 24, 2012 Entered By: CIERA DANG Comment: EKG, JULY 2012 outside [place]; [place] per ptAug 2012 Entered By: CIERA DANG Comment: repeat EKG SEPTEMBER 12 at [facility] Colonoscopy normal Active Condition A ug 2012 Entered By: CIERA DANG Comment: Surveil/Maint ence Colonoscopy 2010: Neg CRC, repeat 2019 MARTIN Consent status for immunizations Active Condition Nov 24, 2012 Entered By: CIERA DANG Comment: Had Herpes Zoxter Inj; declines Pneumovax Inj. MARTIN Environmental allergy Active Condition Nov 24, 2012 Entered By: CIERA DANG Comment: Ragweed, Pollen; No Allergies to Medicine MARTIN History of tonsillectomy Active Condition Nov 24, 2012 Entered By: CIERA DANG Comment: Childhood MARTIN Hypercholesterolemia Active Condition [place] v70 Active Condition Oct 28 14 Entered By: CIERA DANG Comment: had Zoster and Tdap Done in 2012 (approx yr) outside [facility] Medications Combined list of outpatient medications from [...] Site Reaction Lot Number CVX Code Drug Hand Bootmaker Status Comments Source COVID-19 (MODERNA), MRNA, LNP-S, PF, 100 MCG/0.5 ML DOSE 2 2020 207 complet ed MOD; [id number]; 1 [facility] COVID-19 (MODERNA), MRNA, LNP-S, PF, 100 MCG/0.5 ML DOSE 1 2020 207 complet ed MOD; [id number]; 1 [facility] TD(ADULT) UNSPECIFIED FORMULATION 2012 139 complet ed approx dt [facility] ZOSTER (HISTORICAL) 2012 121 complet ed approx dt [facility] Social History Combined list of available smoking, tobacco, and other social history from Department of Defense and Veterans Affairs facilities. Social History Type Response Date Comment [facility] e Tobacco smoking status NHIS QUIT TOBACCO USE > 7 YEARS AGO 11/24/2012 Pt. stated he quit in 1973. MARTIN
== END 2024-06-23 14:20 | disposition home or self-care (01) ==
LOC: HO.HMCH 13:43
PROVIDERS: PCP Internal Medicine
DX: E66.3 Overweight (principal); E78.00 Pure hypercholesterolemia, unspecified; R73.02 Impaired glucose tolerance (oral); I10 Essential (primary) hypertension

== ENCOUNTER → 2024-06-23 13:43 | Outpatient (BNVA) | payer MEDICARE, SELFPAY | PROVIDERS: PCP Internal Medicine | DX: E66.3 Overweight (principal); E78.00 Pure hypercholesterolemia, unspecified; R73.02 Impaired glucose tolerance (oral); I10 Essential (primary) hypertension | CPT/HCPCS: 99212 ==

== ENCOUNTER 2024-11-09 07:32 | Outpatient (REF) | payer MEDICARE, SELFPAY ==
--- OUTSIDE RECORDS SUMMARY | 2020-08-13 08:30 | XMS_ITS | Continuity of Care Document ---
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 It does not include entries that were removed or entered in error. Problem Status Onset Date Problem Type Date of Resolution Comments Source Benign essential hypertension Active Condition Nov 24, 2012 Entered By: CIERA DANG Comment: EKG, JULY 2012 outside [place]; NL per ptAug 2012 Entered By: CIERA DANG Comment: repeat EKG SEPTEMBER 12 at [facility] Colonoscopy normal Active Condition A ug 2012 Entered By: CIERA DANG Comment: Surveil/Maint ence Colonoscopy 2010: Neg CRC, repeat 2019 [place] Consent status for immunizations Active Condition Nov 24, 2012 Entered By: CIERA DANG Comment: Had Herpes Zoxter Inj; declines Pneumovax Inj. [place] Environmental allergy Active Condition Nov 24, 2012 Entered By: CIERA DANG Comment: Ragweed, Pollen; No Allergies to Medicine [place] History of tonsillectomy Active Condition Nov 24, 2012 Entered By: CIERA DANG Comment: Childhood [place] Hypercholesterolemia Active Condition [place] v70 Active Condition Oct 28 14 Entered By: CIERA DANG Comment: had Zoster and Tdap Done in 2012 (approx yr) outside [facility] Medications Combined list of outpatient medications from Department of Defense and Veterans Affairs facilities.Medications provided include 1) outpatient medications from the last 15 months, and 2) patient-reported medications. Medication Details Route Status Patient Instructions Prescription Expires Prescription Number Last Dispense Date Ordering Provider Order Date Order Qty Source ASPIRIN 81MG TAB,EC TAKE ONE TABLET BY MOUTH EVERY DAY ORAL ACTIVE NATALIO DANG 2012 IELD METOPROLOL SUCCINATE 50MG TAB,SA TAKE ONE TABLET BY MOUTH EVERY DAY ORAL ACTIVE NATALIO DANG 2012 IELD Immunizations Combined list of available immunizations from the Department of Defense and Veterans Affairs facilities. Immunization Series Date Given Administered By Site Reaction Lot Number CVX Code Drug Manager Android Status Comments Source COVID-19 (MODERNA), MRNA, LNP-S, PF, 100 MCG/0.5 ML DOSE 2 2020 207 complet ed MOD; [id number]; 1 [facility] COVID-19 (MODERNA), MRNA, LNP-S, PF, 100 MCG/0.5 ML DOSE 1 2020 207 complet ed MOD; [id number]; 1 [facility] TD(ADULT) UNSPECIFIED FORMULATION 2012 139 complet ed approx dt [facility] ZOSTER (HISTORICAL) 2012 121 complet ed approx dt [facility] Social History Combined list of available smoking, tobacco, and other social history from Department of Defense and Veterans Affairs facilities. Social History Type Response Date Comment [facility] e Tobacco smoking status NHIS QUIT TOBACCO USE > 7 YEARS AGO 11/24/2012 Pt. stated he quit in 1973. [place]
--- OUTSIDE RECORDS SUMMARY | 2024-11-09 07:35 | XMS_ITS | Patient Health Record ---
Author Organization [facility] Address [address] [place] [id number] Care Team Providers Care Grid Operator Name Role Phone Alli Escobedo Unavailable [phone] Reason For Referral No Information Plan Of Treatment No Information
[2024-11-09 12:05] LABS: Alanine Aminotransferase 12 U/L (0-40); Albumin Level 4.4 g/dL (3.5-5.0); Alkaline Phosphatase 88 U/L (39-117); Anion Gap 10 (12-20); Aspartate Amino Transferase 21 U/L (5-37); Blood Urea Nitrogen 15 mg/dL (9-16); Calcium 9.2 mg/dL (8.4-10.2); Carbon Dioxide 30 mmol/L (22-29); Chloride 108 mmol/L (96-108); Cholesterol 147 mg/dL (<200); Estimated Glomerular Filt Rate > 60; HDL Cholesterol 39 mg/dL (>40); Potassium 4.4 mmol/L (3.3-5.1); Sodium 144 mmol/L (135-145); Total Protein 6.8 g/dL (6.5-8.0); Triglycerides 84 mg/dL (<150)
== END 2024-11-09 07:33 | disposition home or self-care (01) ==
LOC: HO.WFDLDS 07:32
DX: I10 Essential (primary) hypertension (principal); E78.00 Pure hypercholesterolemia, unspecified
CPT/HCPCS: 36415; 80053; 80061

== ENCOUNTER 2024-12-24 14:06 | Outpatient (AMB) | payer MEDICARE, SELFPAY ==
[2024-12-24 14:16] VITALS: BP 118/68; PULSE 73; O2SAT 96; BMI 26.8
--- NOTE | 2024-12-24 14:16 | MHC.PC.OV ---
Vital Signs 12/24/24 14:16 Height 6 ft 1 in Weight 203 lb BMI 26.8 BP 118/68 Blood Pressure Location Lt brachial Position Sitting Pulse 73 Pulse Source Pulse Oximeter Pulse Oximetry (%) 96 Oxygen Delivery Method Room Air Intake Visit Reasons: f/u BP and HLD Allergies No Known Allergies Allergy (Verified 12/24/24 14:17) Tobacco use date assessed: 06/23/24 Fall risk assessment: No Falls in past year Last assessed Fall Risk: 12/24/24 Dental Screening Dental Screen Date: 06/10/24 [facility] Medical History Screening for prostate cancer Overweight (BMI 25.0-29.9) Hypercholesterolemia Impaired glucose tolerance Hypertension Surgical History History of colonoscopy History of tonsillectomy Rectal polyp Family History Father Hypertension Mother Hypertension Diabetes Sister Hypertension Social History Housing: House Alcohol intake: current Alcohol intake frequency: holidays/special occasions only Alcohol type: beer Patient Tobacco Use Status: Former Tobacco user Tobacco use type: Cigarette e-Cigarette/Vaping Use: Never Used Second Hand Smoke Exposure: Yes Advance Directives Date on File: 01/05/20 service: Yes Current occupational status: retired Current occupational exposures/hazards: No Cognitive needs: No Hearing needs: No Vision needs: Yes Questionnaire PHQ-9 Over the last 2 weeks, how often have you been bothered by any of the following problems? 1. Little interest or pleasure in doing things: not at all 2. Feeling down, depressed, or hopeless: not at all 3. Trouble falling or staying asleep, or sleeping too much: not at all 4. Feeling tired or having little energy: not at all 5. Poor appetite or overeating: not at all 6. Feeling bad about yourself - or that you are a failure or have let yourself or your family down: not at all 7. Trouble concentrating on things, such as reading the newspaper or watching television: not at all 8. Moving or speaking so slowly that other people could have noticed. Or the opposite - being so fidgety or restless that you have been moving around a lot more than usual: not at all 9. Thoughts that you would be better off or of hurting yourself in some way: not at all Total score: 0 Source: Developed by Drs. Alli Romeo, Gloria Schwab, Toi Pichardo and colleagues, with an educational marco from [employer]. Thrive Questionnaire Date Thrive assessed: 06/10/24 I am a: Patient What is your living situation today?: I have a steady place to live Within the past 12 months, did the food you bought not last and you didn't have the money to get more?: Often true Within the past 12 months, did you worry whether your food would run out before you got money to buy more?: Often true Do you have trouble paying for medicines?: No Do you have trouble getting transportation to medical appointments?: No Do you have trouble paying your heating and electricity bill?: No Do you have trouble taking care of your child, family member or friend?: No Do you have trouble with day-to-day activities such as bathing, preparing meals, shopping, managing finances, etc.?: No Are you currently unemployed and looking for a job?: No Are you interested in more education?: Yes Please select the resources that you would like help with: None Currently or been in a relationship where the following occur: No concerns reported THRIVE Score: 2 AUDIT C Alcohol Use Questionnaire (AUDIT-C) 1. How often do you have a drink containing alcohol?: Monthly or less 2. How many drinks containing alcohol do you have on a typical day when you are drinking?: 1 or 2 3. How often do you have six or more drinks on one occasion?: Never Total Score: 1 DAKOTA-7 AMB Questionnaire DAKOTA-7 Date DAKOTA - 7 assessed: 06/10/24 Feeling nervous, anxious, or on edge: 0 = Not at all Not being able to stop or control worryin = Not at all Worrying too much about different things: 0 = Not at all Trouble relaxin = Not at all Being so restless that it is hard to sit still: 0 = Not at all Becoming easily annoyed or irritable: 0 = Not at all Feeling afraid as if something awful might happen: 0 = Not at all Total DAKOTA-7 score (0-4 normal; 5-9 mild; 10-14 moderate; 15-21 severe): 0 Source: Developed by Drs. Alli Romeo, Gloria Schwab, Toi Pichardo and colleagues, with an educational marco from [employer]. Review of Systems Const Denies poor appetite and Denies weakness Eyes Denies no additional complaints ENT Reports Normal hearing present, Denies dizziness, Denies nasal congestion, Denies tinnitus and Denies sore throat Card Denies chest pain, Denies syncope, Denies rapid heart rate and Denies dyspnea Resp Denies cough and Denies dyspnea GI Denies change in stool character, Reports constipation, Denies diarrhea, Denies nausea and Denies vomiting Denies dysuria and Denies urinary frequency Neuro Reports Normal hearing present, Denies confusion, Denies dizziness, Denies syncope and Denies weakness Psych Denies confusion Physical exam (Primary Care) Vital Signs: Last Vital Signs Pulse 73 12/24/24 14:16 BP 118/68 12/24/24 14:16 Pulse Ox 96 12/24/24 14:16 Oxygen Delivery Method Room Air 12/24/24 14:16 BMI result Body Mass Index 26.8 Tobacco/Smoking Status: Tobacco use Status Tobacco use date assessed 06/23/24 12/24/24 14:17 Patient Tobacco Use Status Former Tobacco user 12/24/24 14:17 Tobacco use type Cigarette 12/24/24 14:17 e-Cigarette/Vaping Use Never Used 12/24/24 14:17 PHQ-9: PHQ-9 Score PHQ-9: Total score 0 12/24/24 14:17 Thrive Assessment: Date of Thrive Assessment Date Thrive assessed 06/10/24 12/24/24 14:17 Currently or been in a relationship where the following occur: No concerns reported Const General: No confusion Orientation/consciousness: No confusion HENMT Head: Yes normocephalic Ears: external ears normal and TM's normal bilaterally Face and sinus: Yes normal facial exam Mouth: moist mucous membranes Throat: Yes tonsils normal Eyes Conjunctivae: conjunctivae normal Pupils: Equal, round and reactive pupils present and Pupil accommodation reflex normal Direct Ophthalmoscopy: normal light reflex Neck Neck: No lymphadenopathy Thyroid: Thyroid normal Chest Chest palpation & inspection: normal inspection of the chest Resp Effort & Inspection: normal respiratory effort and no audible wheezes Auscultation: clear to auscultation bilaterally, no crackles, no wheezes and lung sounds not diminished Cardio Rate: regular rate Rhythm: regular rhythm Peripheral pulses: radial pulses present and dorsalis pedis present GI Palpation (GI): no masses Auscultation: normal bowel sounds and normoactive bowel sounds Rectal Exam - Male: Yes deferred Skin General skin exam: no rashes or lesions noted Rashes: no rashes Neuro General: No confusion Cranial nerves: Yes Equal, round and reactive pupils present and Yes Normal hearing present Cognition (Neuro): normal cognition Gait exam (Neuro): Normal gait present Motor exam (neuro): 5/5 motor strength present throughout Deep tendon reflexes (DTR's): Right brachioradialis reflex intensity grade: 2+, Left brachioradialis reflex intensity grade: 2+, Right patellar reflex intensity grade: 2+ and Left patellar reflex intensity grade: 2+ Extrem General: No edema Coding Level of Care Code Est Pt Level 4 (43546) Complex EM visit Add On G2211 Diagnoses Adult general medical exam Z00.00 Overweight (BMI 25.0-29.9) E66.3 Impaired glucose tolerance R73.02 Essential hypertension I10 Hypertension type: essential hypertension Hypercholesterolemia E78.00 Assessment & Plan Assessment & Plan (1) Adult general medical exam: Code(s): Z00.00 - Encounter for general adult medical examination without abnormal findings Category: Medical Plan: Patient is advised to eat healthy, keep well hydrated, keep active and have adequate sleep. (2) Overweight (BMI 25.0-29.9): Code(s): E66.3 - Overweight Category: Medical Plan: Diet and exercise (3) Impaired glucose tolerance: Code(s): R73.02 - Impaired glucose tolerance (oral) Category: Medical Plan: Decrease the amount of carbohydrate intake, pasta, bread, rice and potatoes are all sugar and that is aside from all the sweet stuff, remember that fruits are good but they are Sweet also. (4) Hypertension: Code(s): I10 - Essential (primary) hypertension Category: Medical Qualifiers: Hypertension type: essential hypertension Qualified Code(s): I10 - Essential (primary) hypertension Plan: Continue with blood pressure medication. Decrease salt intake and exercise presently on lisinopril 5 mg once a day metoprolol 50 mg once a day (5) Hypercholesterolemia: Code(s): E78.00 - Pure hypercholesterolemia, unspecified Category: Medical Plan: Avoid fried foods, chicken skin, eggs, butter margarine, pastries and meat. Be it pork or beef they have a lot of cholesterol LDL goal of less than 130 and triglyceride of less than 150. On simvastatin 10 mg at bedtime Plan History of Present Illness The patient is a 79-year-old male presenting for a follow-up on chronic conditions including hypertension, hypercholesterolemia, impaired glucose tolerance, and peripheral vascular disease. Hypertension is managed with metoprolol and lisinopril, with stable blood pressure control reported. Hypercholesterolemia is treated with simvastatin, and recent labs show an LDL cholesterol level of 92 mg/dL. The patient has impaired glucose tolerance, with a recent blood sugar level of 103 mg/dL, and is advised to monitor levels closely. Peripheral vascular disease is noted in the patient's history, though no specific symptoms were discussed. The patient has declined further colonoscopy screenings due to adverse reactions to the preparation. The patient remains active, engaging in house cleaning and cooking, and is up to date with vaccinations, including shingles and tetanus. Health Maintenance - Vaccinations: Up to date with shingles and tetanus shots - Flu shot planned for December - Declined colonoscopy due to previous adverse reactions Social History - Family status: Recently , in June - Exercise: Engages in house cleaning and cooking, maintaining activity levels Review of Systems - Gastrointestinal: Denies constipation, nausea, vomiting, or heartburn - Respiratory: Denies dyspnea or cough - General: Reports being active with no significant fatigue Physical Exam General: Cooperative, healthy appearing, comfortable, no acute distress and well developed Orientation: Patient oriented x3 Limitations: No limitations Head: Normal to inspection Ears: Hearing grossly normal bilaterally Nose: Normal external nose present Face and sinus: Normal facial exam Eyes: Appearance normal, both eyes and all related structures Neck: Normal visual inspection and Yes full ROM Respiratory: Normal respiratory effort and able to speak in complete sentences. Clear to auscultation bilaterally Cardiovascular: Regular rate and rhythm. Normal S1 and S2 GI: Normal to inspection. Soft to palpation and nontender Skin: No rashes or lesions noted Neuro: Patient oriented x3 Extremities: Normal to inspection, slight swelling noted Results - Labs: Normal blood count, normal electrolytes, stable renal function, elevated blood sugar at 103 mg/dL, LDL cholesterol at 92 mg/dL, normal liver function tests, normal B12, thyroid, and folic acid levels Plan Patient was informed and verbally consented to the use of an ambient scribe for clinic note documentation during this visit. 1. Hypertension Hypertension is managed with metoprolol and lisinopril, with stable blood pressure control reported. 2. Hypercholesterolemia Hypercholesterolemia is treated with simvastatin, and recent labs show an LDL cholesterol level of 92 mg/dL. 3. Impaired Glucose Tolerance The patient has impaired glucose tolerance, with a recent blood sugar level of 103 mg/dL, and is advised to monitor levels closely. 4. Peripheral Vascular Disease Peripheral vascular disease is noted in the patient's history, though no specific symptoms were discussed. Discussion Notes During the visit, we discussed the management of hypertension with metoprolol and lisinopril, emphasizing the importance of adherence to medication and regular blood pressure monitoring. We reviewed the patient's hypercholesterolemia management with simvastatin, noting the LDL cholesterol level of 92 mg/dL as a positive outcome. The patient was advised to monitor blood sugar levels closely due to impaired glucose tolerance, with a recent level of 103 mg/dL. We also discussed the patient's decision to decline further colonoscopy screenings due to previous adverse reactions. Patient Instructions - Continue taking metoprolol and lisinopril as prescribed. - Maintain current simvastatin regimen and dietary management. - Monitor blood sugar levels regularly to prevent progression to diabetes. - Plan to receive a flu shot in December. - Consider discussing alternative colon cancer screening options due to adverse reactions to colonoscopy preparation.
--- OUTSIDE RECORDS SUMMARY | 2024-12-24 18:34 | XMS_ITS | Patient Health Record ---
Author Organization [facility] Address [address] [place] [phone] Care Team Providers Care Access Services Librarian Name Role Phone Alli Escobedo Unavailable [phone] Reason For Referral No Information Plan Of Treatment No Information
== END 2024-12-24 14:45 | disposition home or self-care (01) ==
LOC: HO.HMCH 14:07
PROVIDERS: PCP Internal Medicine; Visit Provider Internal Medicine
DX: Z00.00 Encounter for general adult medical examination without abnormal findings (principal); E66.3 Overweight; R73.02 Impaired glucose tolerance (oral); I10 Essential (primary) hypertension; E78.00 Pure hypercholesterolemia, unspecified

== ENCOUNTER → 2024-12-24 14:06 | Outpatient (BNVA) | payer MEDICARE, SELFPAY | PROVIDERS: PCP Internal Medicine; Visit Provider Internal Medicine | DX: Z00.00 Encounter for general adult medical examination without abnormal findings (principal); E66.3 Overweight; Z68.26 Body mass index [BMI] 26.0-26.9, adult; R73.02 Impaired glucose tolerance (oral); I10 Essential (primary) hypertension; E78.00 Pure hypercholesterolemia, unspecified; Z79.899 Other long term (current) drug therapy; Z13.30 Encounter for screening examination for mental health and behavioral disorders, unspecified | CPT/HCPCS: 96127; 99212 ==